=== PATIENT | female | born 1940 | race Caucasian/White ===

== ENCOUNTER → 2017-04-27 | Outpatient (CLI) | payer MEDICARE, MEDICAID ==
--- NOTE | 2017-04-27 16:57 | RADIOLOGY REPORT (SQ) ---
EXAM DESCRIPTION: CAROTID DOPPLER COMPLETED DATE/TIME: 04/27/2017 2:07 pm REASON FOR STUDY: STENOSIS I65.22 OCCLUSION AND STENOSIS OF LEFT CAROTID ARTERY COMPARISON: None. TECHNIQUE: Grayscale ultrasound, Doppler velocity and spectra, and color Doppler images acquired of the extra-cranial carotid and vertebral arteries. Images stored on PACS. LIMITATIONS: None. FINDINGS: RIGHT CAROTID CCA Velocities: Within normal limits. ICA Velocities Peak systolic 1.2 m/s. End diastolic 0.31 m/s. Proximal ICA/CCA peak systolic ratio 1.7. Calcific shadowing plaque at the right carotid bifurcation. Velocities obtained immediately distal t o the shadowing plaque suggest against proximal right internal carotid artery flow significant stenos is. LEFT CAROTID CCA Velocities: Within normal limits. ICA Velocities Peak systolic 3.5 m/s. End diastolic 0.7 m/s. Proximal ICA/CCA peak systolic ratio 3.8. Calcific shadowing plaque at the left carotid bifurcation. Velocities immediately distal to the shad owing plaque suggest 50 to 69% diameter narrowing of the proximal left ICA. There is turbulent flow. VERTEBRAL ARTERIES: Antegrade flow. Normal waveforms. SUBCLAVIAN ARTERIES: Not evaluated OTHER: No other significant finding. IMPRESSION: No flow significant stenosis at the right carotid bifurcation. At the left carotid bifurcation, calcific shadowing plaque obscures the origin of the left ICA. [place] immediately distal to the shadowing plaque suggest 50 to 69% diameter stenosis, closer to the 69% stenosis. Antegrade pulsatile vertebral artery flow bilaterally. COMMENT: Quality ID #[id number]: Velocity criteria are extrapolated from the diameter data as defined by [place]kel [place] [employer] in Ultrasound Consensus Conference. Radiology 2003: 229; 340-346. TECHNICAL DOCUMENTATION: JOB ID: [id number] [employer]- All Rights Reserved
== END ==
LOC: SP 13:17
PROVIDERS: ATTEND Internal Medicine
DX: I65.22 Occlusion and stenosis of left carotid artery (principal)
CPT/HCPCS: 93880

== ENCOUNTER → 2019-02-19 | Outpatient (CLI) | payer MEDICARE, MEDICAID ==
--- NOTE | 2019-02-19 16:24 | RADIOLOGY REPORT (SQ) ---
EXAM DESCRIPTION: CAROTID DOPPLER COMPLETED DATE/TIME: 02/19/2019 3:59 pm REASON FOR STUDY: LT CAROTID STENOSIS I65.22 OCCLUSION AND STENOSIS OF LEFT CAROTID ARTERY COMPARISON: 04/27/2017 TECHNIQUE: Grayscale ultrasound, Doppler velocity and spectra, and color Doppler images acquired of the extra-cranial carotid and vertebral arteries. Images stored on PACS. LIMITATIONS: None. FINDINGS: RIGHT CAROTID CCA Velocities: Within normal limits. ICA Velocities Peak systolic 2.13 m/s. End diastolic 0.51 m/s. Proximal ICA/CCA peak systolic ratio 3.0. There is calcified plaque in the proximal right ICA. LEFT CAROTID CCA Velocities: Within normal limits. ICA Velocities Peak systolic 3.97 m/s. End diastolic 0.93 m/s. Proximal ICA/CCA peak systolic ratio 4.3. There is calcified plaque in the left proximal ICA. VERTEBRAL ARTERIES: Antegrade flow. Normal waveforms. SUBCLAVIAN ARTERIES: No finding. OTHER: No other significant finding. IMPRESSION: 50 to 69% stenosis in the right internal carotid artery this is developed since prior st ren. 2. 70 to 99% stenosis in the left internal carotid artery this has progressed since prior study as artis sousa. COMMENT: Quality ID #[id number]: Velocity criteria are extrapolated from the diameter data as defined by t he Society of Radiologists in Ultrasound Consensus Conference. Radiology 2003: 229; 340-346. TECHNICAL DOCUMENTATION: JOB ID: [id number] [employer]- All Rights Reserved Reading location - IP/workstation name: [email or web address]
== END ==
LOC: SP 14:39
PROVIDERS: ATTEND Internal Medicine
DX: I65.23 Occlusion and stenosis of bilateral carotid arteries (principal)
CPT/HCPCS: 93880